=== PATIENT | female | born 1935 | race Two or more races ===

== ENCOUNTER 2016-12-29 19:36 | Emergency (ER) | payer MEDICARE ==
[~2016-12-29] VITALS: Ht 147.3 cm; Wt 46.7 kg
[2016-12-29 19:44] VITALS: BP 171/73
[2016-12-29] MEDS ORDERED: ACETAMINOPHEN/CODEINE#3 (300/30mg) TAB PO ONE (19:45)
[2016-12-29 20:31] LABS: Basophils # (auto) 0 uL; Basophils % (auto) 0.3 % (0.0-2.0); CONDITION Y; Eosinophils # (auto) 0 uL; Eosinophils % (auto) 0.3 % (0.0-7.0); Hematocrit 37.3 % (36.0-46.0); Hemoglobin 12.3 g/dL (12.2-16.2); Lymphocytes % (auto) 38.3 % (10.0-50.0); Mean Corpuscular Hemoglobin 32.7 pg (28.0-32.0); Mean Corpuscular Hgb Conc. 33.1 g/dL (32.0-36.0); Mean Corpuscular Volume 98.8 fL (80.0-100.0); Mean Platelet Volume 7.6 fL (7.4-10.4); Monocytes # (auto) 0.4 uL; Monocytes % (auto) 8.2 % (0.0-12.0); Neutrophils # (auto) 2.8 uL; Neutrophils % (auto) 52.9 % (37.0-80.0); Platelet Count (auto) 266 10^3/uL (140-450); Red Cell Distribution Width 13.4 % (11.6-16.0); White Blood Cell 5.2 10^3/uL (4.4-10.8)
[2016-12-29 20:56] LABS: Albumin 3.6 g/dL (3.4-5.0); BUN/Creatinine Ratio 26.3; Calcium 8.8 mg/dL (8.5-10.1); Potassium 3.7 mmol/L (3.5-5.1)
[2016-12-29 20:58] LABS: Bilirubin, Total 0.2 mg/dL (0.2-1.0); Total Protein 7.9 g/dL (6.4-8.2)
== END 2016-12-29 21:43 | disposition left against medical advice (07) ==
LOC: ER 19:39
DX: I10 Essential (primary) hypertension (principal); G43.909 Migraine, unspecified, not intractable, without status migrainosus; Z53.21 Procedure and treatment not carried out due to patient leaving prior to being seen by health care provider
CPT/HCPCS: 36415; 71010; 80053; 85025; 93005